=== PATIENT | female | born 1995 | race Caucasian/White ===

== ENCOUNTER 2017-07-20 17:20 | Emergency (ER) | payer OTHER, MEDICAID ==
[~2017-07-20] VITALS: Ht 160 cm; Wt 47.3 kg
[2017-07-20 17:25] VITALS: BP 126/69
[2017-07-20] MEDS ORDERED: PROPARACAINE OPHTH 0.5%, 15ML ONE (18:27)
[2017-07-20] MEDS ORDERED: FLUORESCEIN OPHTHALMIC 1 MG STRIP ONE (18:27)
== END 2017-07-20 19:06 | disposition home or self-care (01) ==
LOC: ED 18:30
DX: H10.022 Other mucopurulent conjunctivitis, left eye (principal); F17.210 Nicotine dependence, cigarettes, uncomplicated
CPT/HCPCS: 99283